=== PATIENT | female | born 1960 | race Caucasian/White ===

== ENCOUNTER → 2016-08-04 10:13 | Outpatient (CLI) | payer OTHER ==
[~2016-08-04 10:13] MED LIST: BAYER CHEWABLE81 MG PO; PLAVIX75 MG PO; PRAVACHOL40 MG PO
[2016-08-18 08:11] VITALS: BMI 41.6
== END | disposition home or self-care (01) ==
LOC: D.CT 10:13
DX: L97.529 Non-pressure chronic ulcer of other part of left foot with unspecified severity (principal); I70.213 Atherosclerosis of native arteries of extremities with intermittent claudication, bilateral legs

== ENCOUNTER 2016-08-18 06:28 | Outpatient (CLI) | payer OTHER ==
[~2016-08-18] VITALS: Ht 170.2 cm; Wt 120.2 kg
--- NOTE | ~2016-08-18 | HEMODYNAMI ---
PATIENT:LAURENCE ROTH MEDICAL RECORD: [id number] : 64 LOCATION:[facility] ADMISSION DATE: 08/18/16 Generatedon:08/19/201610:09 Patient name: LAURENCE ROTH Patient #: [id number] SSN: D OB: 1960 Date of study: 08/18/2016 Page: Of Hemodynamic Procedure Report Patient Data Patient Demographics Procedure consent was obtained First Name: LAURENCE Gender: Female Last Name: IRA : 1960 [facility] Initial: JOSE Age: 56 year(s) Patient #: [id number] Race: Unknown Additional ID: [id number] Contact details [address]: [address] [place] [address] State: [place] City: [place] Zip code: [address] Admission Admission Data Admission Date: 08/18/2016 Admission Time: 6:28 Procedure Procedure Types Cath Procedure Peripheral Cath Diagnostic Procedure Miscellaneous Procedure Description Procedure Date Procedure Date: 08/18/2016 Procedure Start Time: 9:30 Procedure Staff Name Function Zuleyka Machado RN Nurse Lakisha Martinez RT Scrub Jimenez Dixon RT Monitor Apolinar Reina MD Performing Physician Procedure Data Cath Procedure Fluoroscopy Diagnostic fluoroscopy Total fluoroscopy Time: time: 13.2 min 13.2 min Diagnostic fluoroscopy Total fluoroscopy dose: dose: 4369 mGy 4369 mGy Contrast Material Contrast Material Type Amount (ml) Isovue 300 135 Entry Location Entry Primary Successful Side Size Upsize Upsize Entry Closure Succ essful Closure Location (Fr) 1 (Fr) 2 (Fr) Remarks Device Remarks Femoral Right 5 Fr 6 Fr 7 Fr Angio-VIP artery Short Short 6Fr Femoral Left 5 Fr 7 Fr Angio-VIP artery Short 6Fr Diagnostic catheters Device Type Used For End Catheter Placement Merit ULTRA BOLUS FLUSH 5Fr 65CM catheter Procedure Medications Medication Administration Route Dosage Fentanyl I.V. 50 mcg Versed I.V. 1 mg Versed I.V. 1 mg Fentanyl I.V. 50 mcg Heparin Bolus I.V. 5000 units Versed I.V. 1 mg Fentanyl I.V. 50 mcg Versed I.V. 1 mg Fentanyl I.V. 50 mcg Hemodynamics Rest Heart Rate: 88 (bpm) Snapshots Pre Cath Intra NCS Post Cath Vital Signs Time Heart Resp SPO2 NIBP (mmHg) Rhythm Pain Sedation Rate (ipm) (%) Status Level (bpm) 9:22:57 83 13 147/86(118) NSR 3 (11) , 10(A) Tolerable 9:27:19 85 18 100 149/85(124) NSR 3 (11) , 10(A) Tolerable 9:31:35 86 14 100 145/84(122) NSR 0 (11) , 10(A) No pain 9:35:55 81 17 151/88(121) NSR 0 (11) , 9(A) No pain 9:40:09 91 15 97 142/84(118) NSR 0 (11) , 9(A) No pain 9:44:29 91 13 96 140/81(123) NSR 0 (11) , 9(A) No pain 9:48:46 93 14 98 126/74(100) NSR 0 (11) , 9(A) No pain 9:52:58 91 14 97 125/75(101) NSR 0 (11) , 9(A) No pain 9:57:12 86 16 98 122/79(99) NSR 0 (11) , 9(A) No pain 10:01:25 88 22 98 131/76(110) NSR 0 (11) , 9(A) No pain 10:05:41 89 17 98 129/77(103) NSR 0 (11) , 9(A) No pain 10:09:55 81 18 98 136/81(121) NSR 0 (11) , 9(A) No pain 10:14:12 87 16 99 140/83(117) NSR 0 (11) , 9(A) No pain 10:18:30 88 16 98 150/86(105) NSR 0 (11) , 9(A) No pain 10:22:50 89 14 97 140/81(126) NSR 0 (11) , 9(A) No pain 10:27:04 92 13 98 135/84(113) NSR 0 (11) , 9(A) No pain 10:31:20 93 14 98 141/77(107) NSR 0 (11) , 9(A) No pain 10:35:38 91 15 99 142/85(113) NSR 0 (11) , 9(A) No pain 10:40:00 93 13 98 144/77(113) NSR 0 (11) , 9(A) No pain 10:44:18 88 18 99 145/85(114) NSR 0 (11) , 9(A) No pain 10:48:38 89 24 99 140/84(115) NSR 0 (11) , 9(A) No pain 10:52:52 93 22 98 158/94(134) NSR 0 (11) , 10(A) No pain 10:57:16 90 13 97 150/93(131) NSR 0 (11) , 10(A) No pain Medications Time Medication Route Dose Verified Delivered Reason Notes Effe ctiveness by by 9:29:25 Fentanyl I.V. 50 Zuleyka Zuleyka for sedation mcg Carter JENNYFER Machado RN 9:29:38 Versed I.V. 1 mg Zuleyka Zuleyka Carter JENNYFER Machado RN 9:34:45 Versed I.V. 1 mg Zuleyka Zuleyka for sedation [facility] JENNYFER 9:34:57 Fentanyl I.V. 50 Zuleyka Zuleyka for sedation mcg Carter JENNYFER Machado 9:50:22 Heparin I.V. 5000 Zuleyka Zuleyka for Bolus units Acrter JENNYFER Machado RN anticoagulation 10:15:34 Versed I.V. 1 mg Zuleyka Zuleyka for sedation [facility] King JENNYFER 10:15:45 Fentanyl I.V. 50 Zuleyka Zuleyka for sedation mcg Carter JENNYFER Machado 10:44:33 Versed I.V. 1 mg Zuleyka Zuleyka for sedation [facility] 10:44:45 Fentanyl I.V. 50 Zuleyka Zuleyka for sedation [facility] Procedure Log Time Note 8:51:25 Jimenez Dixon RT (R) (JC) sent for patient. Start room use. 8:51:34 Time tracking: Regular hours 8:51:39 Plan of Care:Hemodynamics will remain stable., Cardiac rhythm will remain stable., Comfort level will be maintained., Respiratory function will remain adequate., Patient/ family verbilizes understanding of procedure., Procedure tolerated without complication., Recovers from procedure without complications.. 8:51:44 Patient received from Outpatients to IR Alert and oriented. Tansferred to table in Supine position. 8:51:45 Correct patient and procedure confirmed by team. 8:51:47 Signed procedure consent form obtained from patient. 8:51:48 ECG and BP/O2 sat monitors applied to patient. 8:51:49 Full Disclosure recording started 8:51:50 - 8:51:53 H&P Date Dictated: 08/18/2016 H&P Addendum completed by physician on day of procedure. (MUST COMPLETE FOR ALL OUTPATIENTS). 8:51:54 Pre-op teaching completed and patient verbalized understanding. 8:51:54 Pre-procedure instructions explained to patient. 8:51:56 Family in waiting room. 8:51:57 Patient NPO since Midnight. 8:52:01 Is the patient allergic to Iodine/contrast media? No. 8:52:05 Is patient on blood thinner?Yes 8:52:11 Patient diabetic? No. 8:52:20 ----Pre-sedation anethsthesia assessment.---- 8:52:20 - 8:52:23 Previous problem with sedation/anesthesia? No ? 8:52:25 Snore? Yes 8:52:26 Sleep apnea? No 8:52:27 Deviated septum? No 8:52:28 Opens mouth fully? Yes 8:52:29 Sticks out tongue? Yes 8:52:31 Airway obstruction? No ? 8:52:34 Dentures? No ? 8:52:41 Use device set IR Diagnostic 8:52:42 Acist Syringe opened to sterile field. 8:52:43 Acist Hand Control opened to sterile field. 8:52:44 Bag Decanter opened to sterile field. 8:52:44 Acist Manifold opened to sterile field. 8:52:45 Sterile Angiographic Pack opened to sterile field. 9:00:43 Pre procedure: right dorsailis pedis pulse Doppler 9:00:45 Pre procedure: left dorsailis pedis pulse Doppler 9:00:48 Pre procedure: right posterior tibial pulse Doppler 9:00:51 Pre procedure: left posterior tibial pulse Doppler 9:00:59 Patient pain scale 0/10 no pain. 9:12:44 IV patent on arrival in left hand with 0.9% NaCl at [facility]. 9:12:45 Sharps counted by scrub and verified by R.N. 9:12:46 Alarms reviewed by R. N. 9:12:50 Bilateral groins area was prepped with chlora-prep and draped in steril e fashion 9:21:41 Vital chart was started 9:21:42 Baseline sample Acquired. 9::46 Rhythm: sinus rhythm 9::44 --------ALL STOP TIME OUT------ 9::44 Physician arrived 9::45 Final Timeout: patient, procedure, and site verified with staff and physician. All members of the team are in agreement. 9:27:47 Bilateral groins site verified by team. 9::59 Physical assessment completed. ASA score P 3 - A patient with severe systemic disease as per Apolinar Reina MD. 9:28:03 Sedation plan: IV Moderate Sedation Versed, Fentanyl 9:29:25 Fentanyl 50 mcg I.V. was given by Zuleyka Machado RN; for sedation; 9::38 Versed 1 mg I.V. was given by Zuleyka Machado RN; ; 9:30:21 Procedure started. 9:30:30 Local anesthetic to right femoral artery with Lidocaine 1% by Apolinar Reina MD.INITIAL ACCESS ONLY 9:31:53 A 5 Fr sheath was inserted into the Right Femoral artery 9:31:56 Cook DOC .035 guide wire opened to sterile field. 9:31:56 St Corona 5FR Sheath opened to sterile field. 9:31:56 TUBING, CONTRAST INJCTN HI PRES opened to sterile field. 9:31:57 Micropuncture VSI 4FR kit opened to sterile field. 9:31:59 A Merit ULTRA BOLUS FLUSH 5Fr 65CM catheter was advanced over the wire and used for . 9:34:45 Versed 1 mg I.V. was given by Zuleyka Machado RN; for sedation; 9:34:57 Fentanyl 50 mcg I.V. was given by Zuleyka Machado RN; for sedation; 9:37:48 St Corona 5FR Sheath opened to sterile field. 9:37:56 A 5 Fr sheath was inserted into the Left Femoral artery 9:45:02 Cook ROADRUNNER 260 .035 glide wire opened to sterile field. 9:45:03 CXI Catheter 90cm opened to sterile field. 9:49:41 Terumo 5FR ANGLED 65CM glide catheter opened to sterile field. 9:50:22 Heparin Bolus 5000 units I.V. was given by Zuleyka Machado RN; for anticoagulation; 9:51:20 Cook BENITES 260 guide wire opened to sterile field. 9:51:20 Cook BENITES 260 guide wire opened to sterile field. 10:02:41 OUTBACK LTD L120C catheter opened to sterile field. 10:03:30 [place] Sci Choice PT Floppy J 300cm 0.014 guide wi opened to sterile field. 10:05:04 Sheath upsized to a 6 Fr Short. 10:06:53 [place] Sci Choice PT Floppy J 300cm 0.014 guide wi opened to sterile field. 10:06:55 Cordis 6Fr BRITE TIP 11cm sheath opened to sterile field. 10:11:55 BasixTOUCH Inflation Syringe opened to sterile field. 10:14:31 Inflation number: 1 A Saber 5.0 X 4 X 150 balloon was prepped and advanced across the Proximal Common Iliac, Right, then inflated to 0 NELSY for 0:00 (min:sec). 10:15:34 Versed 1 mg I.V. was given by Zuleyka Machado RN; for sedation; 10:15:45 Fentanyl 50 mcg I.V. was given by Zuleyka Machado RN; for sedation; 10:18:38 Cordis 7Fr BRITE TIP 11cm sheath opened to sterile field. 10:18:39 Cordis 7Fr BRITE TIP 11cm sheath opened to sterile field. 10:18:52 Sheath upsized to a 7 Fr Short. 10:18:58 Sheath upsized to a 7 Fr Short. 10:24:18 Inflation Number: 1 A Cordis Landy 8 x 39 x 135 stent was prepped and advanced across the Proximal Common Iliac, Left. The stent was deployed at 0 NELSY for 0:00 (min:sec). 10:25:10 Inflation Number: 1 A Cordis Landy 8 x 59 x 135 stent was prepped and advanced across the Undefined lesion 1 on undefined graft 1. The stent was deployed at 0 NELSY for 0:00 (min:sec). 10:30:51 BasixTOUCH Inflation Syringe opened to sterile field. 10:31:23 Inflation Number: 2 A Cordis Landy 9 x 29 x 80 stent was prepped and advanced across the Proximal Common Iliac, Left. The stent was deployed at 0 NELSY for 0:00 (min:sec). 10:41:45 Inflation Number: 2 A Cordis Landy 8 x 24 x 135 stent was prepped and advanced across the Proximal Common Iliac, Right. The stent was deployed at 0 NELSY for 0:00 (min:sec). 10:44:33 Versed 1 mg I.V. was given by Zuleyka Machado RN; for sedation; 10:44:45 Fentanyl 50 mcg I.V. was given by Zuleyka Machado RN; for sedation; 10:47:01 ANGIOSEAL-VIP PLUS 6 FR opened to sterile field. 10:47:02 ANGIOSEAL-VIP PLUS 6 FR opened to sterile field. 10:47:33 Sheath removed intact; hemostasis achieved with Angio-VIP 6Fr to the Left Femoral artery. 10:47:54 Sheath removed intact; hemostasis achieved with Angio-VIP 6Fr to the Right Femoral artery. 10:48:02 Procedure ended.(Physican Out) 10:53:10 Fluoroscopy time 13.20 minutes. 10:53:19 Fluoroscopy dose: 4369 mGy 10:53:19 Flurop Dose total: 4369 10:54:13 Contrast amount:Isovue 300 135ml. 10:54:16 Sharps counted by scrub and verified by R.N. 10:54:21 Post-op/insertion site Right Femoral artery dressed using a 4 x 4 and Tegaderm. 10:54:24 Post-op/insertion site Left Femoral artery dressed using a 4 x 4 and Tegaderm. 10:54:28 Post right femoral artery:stable 10:54:33 Post left femerol artery:stable 10:54:38 Post procedure: right dorsailis pedis pulse 1+ Palpable, but thready & weak; easily obliterated. 10:54:48 Post procedure: left dorsailis pedis pulse 1+ Palpable, but thready & weak; easily obliterated. 10:54:55 Post procedure: right posterior tibial pulse Doppler. 10:54:58 Post procedure: left posterior tibial pulse Doppler. 10:55:02 Post-procedure physical assessment completed. ASA score P 3 - A patient with severe systemic disease as per Apolinar Reina MD. 10:55:04 Post procedure rhythm: unchanged. 10:58:22 Post procedure instruction explained to patient.Patient verbalizes understanding. 10:58:23 Procedure and supply charges have been captured, reviewed, submitted an d are correct. 10:58:26 Report given to Outpatients. 10:58:30 Patient transfered to Outpatients with Bed. 10:59:07 Vital chart was stopped 10:59:11 Full Disclosure recording stopped Intervention Summary Intervention Notes Time ActionType Lesion and Equipment Action# Pressure Duration Attributes Used 10:14:31 Inflate Proximal Saber 5.0 1 0 00:00 balloon Common X 4 X 150 Iliac, balloon Right 10:24:18 Place stent Proximal Cordis 1 0 00:00 Common Landy 8 Iliac, Left x 39 x 135 stent 10:25:10 Place stent Undefined Cordis 1 0 00:00 lesion 1 on Landy 8 undefined x 59 x graft 1 135 stent 10:31:23 Place stent Proximal Cordis 2 0 00:00 Common Landy 9 Iliac, Left x 29 x 80 stent 10:41:45 Place stent Proximal Cordis 2 0 00:00 Common Landy 8 Iliac, x 24 x Right 135 stent Device Usage Item Name Manufacture Quantity Catalog Number Hospital Part Current Min imal Lot# / Charge Number Stock Stock Serial# Code Acist Syringe Acist 1 89945 179390 980645 230362 20 Medical [employer] Inc Acist Hand Acist 1 72359 226140 175740 565129 5 Control Medical Systems Inc Acist Acist 1 87166 921441 460966 665305 5 Manifold Medical Systems Inc Bag Decanter Microtek 1 2001S 574415 23588 907370 5 Medical Inc. Sterile Cardinal 1 [id number] 577737 669823 5 Angiographic Health Pack TUBING, Merit 1 [id number] 095307 887525 845379 5 CONTRAST Medical INJCTN HI PRES [facility] Corona 5FR St Corona 2 723890 483809 829241 5 [id number] Sheath 1818198 Cook DOC .035 [facility] 1 [id number] 759961 613714 5 [id number] guide wire Micropuncture VSI VASCULAR 1 7266V 185387 752217 5 VSI 4FR kit SOLUTIONS Merit ULTRA Merit 1 [id number] 390510 930359 5 BOLUS FLUSH Medical 5Fr 65CM catheter [facility] 1 [id number] 984923 446926 5 [id number] ROADRUNNER 260 .035 glide wire CXI Catheter [facility] 1 [id number] 374878 850925 227188 5 90cm Terumo 5FR Terumo 1 CG507 867440 868653 5 ANGLED 65CM glide catheter [facility] 2 C49852 202365 358248 5 [id number] 260 guide 9474984 wire OUTBACK LTD Cardinal 1 [id number] 084604 280628 280157 5 L120C Health catheter [place] Sci Rosedale 2 [id number] 152686 927384 5 [id number] Choice PT Scientific [id number] Floppy J 300cm 0.014 guide wi Cordis 6Fr Cardinal 1 [id number] 147918 961075 5 BRITE TIP Health 11cm sheath BasixTOUCH Merit 2 VT3586 799959 920022 681419 5 [id number] Inflation Medical [id number] Syringe Saber 5.0 X 4 Cardinal 1 [id number] 208348 930292 5 X 150 balloon Health Cordis 7Fr Cardinal 2 [id number] 366712 552786 5 BRITE TIP Health 11cm sheath Cordis Cardinal 1 [id number] 019793 020532 561180 5 [id number] Landy 8 x Health 39 x 135 stent Cordis Cardinal 1 [id number] 272459 05317 458838 5 [id number] Landy 8 x Health 59 x 135 stent Cordis Cardinal 1 [id number] 695945 226571 5 [id number] Landy 9 x Health 29 x 80 stent Cordis Cardinal 1 [id number] 840679 365514 5 [id number] Landy 8 x Health 24 x 135 stent ANGIOSEAL-VIP St Corona 2 823912 912595 200751 5 [id number] PLUS 6 FR [id number] Signature Audit [place] Stage Time Signature Unsigned Intra-Procedure 08/18/2016 Jimenez Dixon RT 10:59:04 AM [place] RT (R) (CV) 08/19/2016 (R) (CV) 10:08:32 AM Intra-Procedure 08/19/2016 Jimenez 10:09:47 AM C[place]ield RT (R) (CV) Signatures Monitor : Jimenez Signature : Destiny RT Date : Time : [address] [id number] [place] [address]
[2016-08-18 07:18] LABS: BASOPHILS 0.5 % (0.0-2.0); EOSINOPHILS 4.1 % (0-7); HEMATOCRIT 39.1 % (36.0-48.0); HEMOGLOBIN 12.7 g/dL (12-16); IMMATURE GRANULOCYTES 0.4 % (0-5); LYMPHOCYTES 44.5 % (15-50); MCHC 32.5 g/dL (31.0-37.0); MCV 95.4 fL (80.0-100.0); MEAN PLATELET VOLUME 9.2 fL (7.4-10.4); NEUTROPHILS 44.5 % (40-80); PLATELET COUNT 289 10x3/uL (130-400); RDW 13.5 % (11.5-14.5); WBC 9.5 10x3/uL (4.8-10.8)
[2016-08-18 07:29] LABS: APTT 27.3 SECONDS (22.8-39.4); INR 0.89 (0.85-1.17); PROTIME 11.9 SECONDS (11.6-15.0)
[2016-08-18 07:30] LABS: CALC OSMOLALITY 282 mosm/kg (275-300); CALCIUM 8.5 mg/dL (8.5-10.1); CARBON DIOXIDE 26.2 mmol/L (21.0-32.0); CHLORIDE - SERUM 107 mmol/L (98-107); CREATININE - SERUM 0.8 mg/dL (0.6-1.3); GLUCOSE 106 mg/dL (74-106); POTASSIUM - SERUM 4.1 mmol/L (3.5-5.1); SODIUM 142 mmol/L (136-145); UREA NITROGEN 13 mg/dL (7-18); eGFR NON AFRICAN AMERICAN 79 mL/min (90-120)
[2016-08-18] MEDS ORDERED: BAYER CHEWABLE81 MG PO (08:01)
[2016-08-18] MEDS ORDERED: PLAVIX75 MG PO (08:01)
[2016-08-18] MEDS ORDERED: PRAVACHOL40 MG PO (08:02)
[2016-08-18 08:11] VITALS: BP 140/96; Ht 170.2 cm; Wt 120.2 kg
--- NOTE | 2016-08-18 16:10 | NUR ---
VS TAKEN AND PLACE ON POST-OP SHEET
--- NOTE | 2016-08-18 18:21 | NUR ---
1645 IV DC WITH CATHER TIP INTACT
== END 2016-08-18 17:15 | disposition home or self-care (01) ==
LOC: D.OPS 06:28 → D.RAD 09:00 → D.OPS 09:00
PROVIDERS: General Practice
DX: I70.245 Atherosclerosis of native arteries of left leg with ulceration of other part of foot (principal); I70.92 Chronic total occlusion of artery of the extremities; I70.221 Atherosclerosis of native arteries of extremities with rest pain, right leg; M79.605 Pain in left leg; M79.604 Pain in right leg